=== PATIENT | female | born 1955 | race Caucasian/White ===

== ENCOUNTER 2016-10-28 23:35 | Inpatient (IN) | payer OTHER, SELFPAY ==
[2016-10-28] MEDS ORDERED: CLARITIN10 M6 PO (23:54)
[2016-10-29 00:08] LABS: BASO % 0.5 % (0-2); EOS % 4.1 % (0-7); EOSINOPHIL ABSOLUTE COUNT 0.3 tho/cmm (0.0-0.7); HCT-HEMATOCRIT 36.3 % (34.0-49.0); LYMPH % 37.2 % (20-45); LYMPH ABSOLUTE COUNT 2.4 tho/cmm (0.8-4.5); MCH (MEAN CORPUSCULAR HGB) 28.5 pg (28.0-32.0); MCHC MEAN CORPUSCULAR HGB CONC 33.1 % (32.0-36.0); MCV (MEAN CELL VOLUME) 86.2 fl (82.0-96.0); MEAN PLATELET VOLUME 8.5 cmc (9.4-12.4); MONO % 6.1 % (0-12); MONOCYTE ABSOLUTE COUNT 0.4 tho/cmm (0.0-1.2); NEUTROPHIL ABSOLUTE COUNT 3.3 tho/cmm (1.6-8.0); NEUTROPHIL-AUTOMATED 3.3 tho/cmm (1.6-8.0); NEUTROPHILS % 52.1 % (40-80); PLATELET COUNT 269 tho/cmm (150-450); RED BLOOD COUNT 4.21 mil/cmm (4.00-5.20); RED CELL DISTRIBUTION WIDTH 13.3 % (12.4-16.4); WHITE BLOOD COUNT 6.4 tho/cmm (4.0-10.0)
[2016-10-29] MEDS ORDERED: VENTOLIN HFA18 G2 INH (00:12)
[2016-10-29 00:18] LABS: ANION GAP 15 mmol/L (0-20); BLOOD UREA NITROGEN 22 mg/dl (6-24); CARBON DIOXIDE-VENOUS 25 mmol/L (22-32); CHLORIDE 106 mmol/l (96-110); CREATININE 1.17 mg/dl (0.50-1.10); GLUCOSE 147 mg/dL (70-110); POTASSIUM 3.9 mmol/L (3.7-5.1); SODIUM 142 mmol/L (135-145); eGFR VALUE FOR BLACK 59 mL/Min
[2016-10-29 01:16] LABS: URINE BILIRUBIN NEGATIVE (NEG); URINE BLOOD MODERATE (NEG); URINE GLUCOSE (UA) NEGATIVE (NEG); URINE KETONE NEGATIVE (NEG); URINE LEUKOCYTE ESTERASE POSITIVE (NEG); URINE NITRITE NEGATIVE (NEG); URINE PROTEIN NEGATIVE (NEG)
[2016-10-29 01:17] LABS: URINE APPEARANCE HAZY; URINE COLOR YELLOW
[2016-10-29 01:23] LABS: URINE EPITHELIAL CELLS 0 /[HPF] (0-10)
[2016-10-29] MEDS ORDERED: MULTIVITAMIN PO (03:48)
[2016-10-29 09:33] LABS: ANION GAP 14 mmol/L (0-20); BLOOD UREA NITROGEN 20 mg/dl (6-24); CALCIUM 8.4 mg/dl (8.5-10.5); CARBON DIOXIDE-VENOUS 26 mmol/L (22-32); CHLORIDE 106 mmol/l (96-110); CREATININE 1.35 mg/dl (0.50-1.10); GLUCOSE 179 mg/dL (70-110); POTASSIUM 4.4 mmol/L (3.7-5.1); SODIUM 142 mmol/L (135-145); eGFR VALUE FOR BLACK 50 mL/Min
[2016-10-29 12:49] LABS: ALB/GLOB RATIO 0.8 (0.8-2.0); ALBUMIN 2.7 g/dl (3.5-5.0); ALKALINE PHOSPHATASE 71 U/L (33-138); ALT/SGPT 25 U/L (12-78); AST/SGOT 30 U/L (10-40); BILIRUBIN,DIRECT 0.2 mg/dl (0.0-0.3); BILIRUBIN,INDIRECT 0.7 mg/dL (0.0-1.0); BILIRUBIN,TOTAL 0.9 mg/dl (0-1.5); C-REACTIVE PROTEIN 4.2 mg/dl (0-0.9); LIPASE 142 U/L (73-393)
[2016-10-29 13:16] LABS: PROCALCITONIN 31.83 ng/ml (0.05-0.09)
[2016-10-29 13:24] LABS: ABG CO2 ARTERIAL 23 mmol/L (21-27); ARTERIAL BLD GAS O2 SATURATION 93 % (95-98); ARTERIAL BLOOD GAS PCO2 47 mmHg (32-45); ARTERIAL PO2 74 mmHg (70-100); BICARBONATE 21 mmol/L (21-28); BLOOD GAS BASE EXCESS -5 mM/L (-/+3); PH 7.28 Units (7.35-7.45)
[2016-10-29 14:56] LABS: HCT-HEMATOCRIT 36.9 % (34.0-49.0); HGB-HEMOGLOBIN 11.7 gm/dl (12.0-15.5); MCHC MEAN CORPUSCULAR HGB CONC 31.7 % (32.0-36.0); MCV (MEAN CELL VOLUME) 88.3 fl (82.0-96.0); MEAN PLATELET VOLUME 8.4 cmc (9.4-12.4); NEUTROPHIL-AUTOMATED 4.3 tho/cmm (1.6-8.0); PLATELET COUNT 151 tho/cmm (150-450); RED BLOOD COUNT 4.18 mil/cmm (4.00-5.20); RED CELL DISTRIBUTION WIDTH 13.7 % (12.4-16.4); WHITE BLOOD COUNT 4.6 tho/cmm (4.0-10.0)
[2016-10-29 14:59] LABS: INR 1.1 INR (0.9-1.1); PROTHROMBIN TIME 12.9 SECONDS (9.0-13.6)
[2016-10-29 15:05] LABS: ABG CO2 ARTERIAL 21 mmol/L (21-27); ARTERIAL BLD GAS O2 SATURATION 94 % (95-98); ARTERIAL BLOOD GAS PCO2 38 mmHg (32-45); ARTERIAL PO2 77 mmHg (70-100); BICARBONATE 20 mmol/L (21-28); BLOOD GAS BASE EXCESS -5 mM/L (-/+3); PH 7.34 Units (7.35-7.45)
[2016-10-29 15:21] LABS: ALB/GLOB RATIO 0.8 (0.8-2.0); ALBUMIN 2.8 g/dl (3.5-5.0); ALKALINE PHOSPHATASE 71 U/L (33-138); ALT/SGPT 27 U/L (12-78); ANION GAP 13 mmol/L (0-20); AST/SGOT 28 U/L (10-40); BILIRUBIN,TOTAL 0.9 mg/dl (0-1.5); BLOOD UREA NITROGEN 21 mg/dl (6-24); CALCIUM 7.6 mg/dl (8.5-10.5); CARBON DIOXIDE-VENOUS 24 mmol/L (22-32); CHLORIDE 110 mmol/l (96-110); CREATININE 1.47 mg/dl (0.50-1.10); GLUCOSE 152 mg/dL (70-110); SODIUM 144 mmol/L (135-145); eGFR VALUE FOR BLACK 45 mL/Min
[2016-10-29 15:22] LABS: POTASSIUM 3.4 mmol/L (3.7-5.1)
[2016-10-29 15:27] LABS: BAND % 17 % (0-20); BAND ABSOLUTE COUNT 0.8 tho/cmm (0-2.0)
[2016-10-30 05:37] LABS: BASO % 0.1 % (0-2); EOS % 0.1 % (0-7); HCT-HEMATOCRIT 32.1 % (34.0-49.0); HGB-HEMOGLOBIN 10.3 gm/dl (12.0-15.5); IMMATURE GRANULOCYTES ABSOLUTE 0.31 tho/cmm (0-0.03); IMMATURE GRANULOCYTES PERCENT 2.3 % (0-0.3); LYMPH % 4.6 % (20-45); LYMPH ABSOLUTE COUNT 0.6 tho/cmm (0.8-4.5); MCH (MEAN CORPUSCULAR HGB) 28.3 pg (28.0-32.0); MCHC MEAN CORPUSCULAR HGB CONC 32.1 % (32.0-36.0); MCV (MEAN CELL VOLUME) 88.2 fl (82.0-96.0); MEAN PLATELET VOLUME 8.5 cmc (9.4-12.4); MONO % 3.2 % (0-12); MONOCYTE ABSOLUTE COUNT 0.4 tho/cmm (0.0-1.2); NEUTROPHIL ABSOLUTE COUNT 12.1 tho/cmm (1.6-8.0); NEUTROPHIL-AUTOMATED 12.1 tho/cmm (1.6-8.0); NEUTROPHILS % 89.7 % (40-80); PLATELET COUNT 122 tho/cmm (150-450); RED BLOOD COUNT 3.64 mil/cmm (4.00-5.20); RED CELL DISTRIBUTION WIDTH 14.1 % (12.4-16.4)
[2016-10-30 05:40] LABS: WHITE BLOOD COUNT 13.5 tho/cmm (4.0-10.0)
[2016-10-30 05:48] LABS: ANION GAP 12 mmol/L (0-20); BLOOD UREA NITROGEN 19 mg/dl (6-24); CALCIUM 7.1 mg/dl (8.5-10.5); CARBON DIOXIDE-VENOUS 22 mmol/L (22-32); CHLORIDE 113 mmol/l (96-110); CREATININE 0.79 mg/dl (0.50-1.10); GLUCOSE 142 mg/dL (70-110); MAGNESIUM 1.8 mg/dl (1.8-2.6); POTASSIUM 4.2 mmol/L (3.7-5.1); SODIUM 143 mmol/L (135-145); eGFR VALUE FOR BLACK >90 mL/Min
--- NOTE | 2016-10-30 18:58 | NUR ---
VIRTUAL CARE NOTE: ASSESSMENT DEFERRED. PT. SLEEPING.
[2016-10-31 05:38] LABS: HCT-HEMATOCRIT 32.7 % (34.0-49.0); HGB-HEMOGLOBIN 10.5 gm/dl (12.0-15.5); MCH (MEAN CORPUSCULAR HGB) 27.9 pg (28.0-32.0); MCHC MEAN CORPUSCULAR HGB CONC 32.1 % (32.0-36.0); MCV (MEAN CELL VOLUME) 86.7 fl (82.0-96.0); MEAN PLATELET VOLUME 9.1 cmc (9.4-12.4); NEUTROPHIL-AUTOMATED 8.4 tho/cmm (1.6-8.0); PLATELET COUNT 134 tho/cmm (150-450); RED BLOOD COUNT 3.77 mil/cmm (4.00-5.20); RED CELL DISTRIBUTION WIDTH 13.8 % (12.4-16.4); WHITE BLOOD COUNT 10.4 tho/cmm (4.0-10.0)
[2016-10-31 05:48] LABS: BASO % 0.2 % (0-2); EOS % 1.3 % (0-7); EOSINOPHIL ABSOLUTE COUNT 0.1 tho/cmm (0.0-0.7); IMMATURE GRANULOCYTES ABSOLUTE 0.74 tho/cmm (0-0.03); IMMATURE GRANULOCYTES PERCENT 7.1 % (0-0.3); LYMPH % 6.6 % (20-45); LYMPH ABSOLUTE COUNT 0.7 tho/cmm (0.8-4.5); MONO % 3.9 % (0-12); MONOCYTE ABSOLUTE COUNT 0.4 tho/cmm (0.0-1.2); NEUTROPHIL ABSOLUTE COUNT 8.4 tho/cmm (1.6-8.0); NEUTROPHILS % 80.9 % (40-80)
[2016-10-31 06:00] LABS: ALB/GLOB RATIO 0.6 (0.8-2.0); ALBUMIN 2.2 g/dl (3.5-5.0); ALKALINE PHOSPHATASE 48 U/L (33-138); ALT/SGPT 18 U/L (12-78); ANION GAP 10 mmol/L (0-20); AST/SGOT 22 U/L (10-40); BILIRUBIN,TOTAL 0.5 mg/dl (0-1.5); BLOOD UREA NITROGEN 19 mg/dl (6-24); CARBON DIOXIDE-VENOUS 23 mmol/L (22-32); CHLORIDE 113 mmol/l (96-110); CREATININE 0.87 mg/dl (0.50-1.10); GLUCOSE 111 mg/dL (70-110); SODIUM 142 mmol/L (135-145); eGFR VALUE FOR BLACK 85 mL/Min
[2016-10-31 22:21] LABS: MAGNESIUM 2.2 mg/dl (1.8-2.6); POTASSIUM 3.4 mmol/L (3.7-5.1)
[2016-11-02 14:13] LABS: MAGNESIUM 1.9 mg/dl (1.8-2.6); POTASSIUM 3.6 mmol/L (3.7-5.1)
[2016-11-02] MEDS ORDERED: FLOMAX0.4 M1 PO (15:03)
[2016-11-02] MEDS ORDERED: AUGMENTIN 875-1 EAC2 PO (15:03)
[2016-11-02] MEDS ORDERED: TYLENOL325 M2 PO (15:04)
== END 2016-11-02 15:58 | DRG 871 ==
LOC: EDMED 23:35 → EMR2 10-29 03:04 → CAR1 10-29 03:42 → ORW 10-29 10:41 → PACU 10-29 13:01 → CCU 10-29 13:12 → 5WD 10-30 13:45
PROVIDERS: Emergency Medicine; Internal Medicine Cardiovascular Disease; Internal Medicine Critical Care Medicine; Physician Assistant; Registered Nurse; ADMIT Hospitalist
PROC: 0T778DZ Dilation of Left Ureter with Intraluminal Device, Via Natural or Artificial Opening Endoscopic (ICD-10-PCS; principal; 2016-10-29)
PROC: BT1FYZZ Fluoroscopy of Left Kidney, Ureter and Bladder using Other Contrast (ICD-10-PCS; 2016-10-29)
PROC: 02HV33Z Insertion of Infusion Device into Superior Vena Cava, Percutaneous Approach (ICD-10-PCS; 2016-10-29)
DX: A41.51 Sepsis due to Escherichia coli [E. coli] (principal); J18.9 Pneumonia, unspecified organism; N39.0 Urinary tract infection, site not specified; N20.1 Calculus of ureter; B96.20 Unspecified Escherichia coli [E. coli] as the cause of diseases classified elsewhere; J45.909 Unspecified asthma, uncomplicated; I49.3 Ventricular premature depolarization; E83.42 Hypomagnesemia; E87.6 Hypokalemia; N99.0 Postprocedural (acute) (chronic) kidney failure; N83.201 Unspecified ovarian cyst, right side
CPT/HCPCS: C1751; C1758; C1769; C2617; J0131; J1885; J2270; J2310; J2405; J2543; J3370; J3480; J7030; J7050; Q9967